=== PATIENT | female | born 1980 | race Caucasian/White ===

== ENCOUNTER 2021-10-23 08:37 | Outpatient (CLI) | payer OTHER, SELFPAY ==
--- NOTE | 2021-10-23 09:00 | CRLHL7_ITS ---
For Patients: As a result of the Century Cures Act, medical imaging exams and procedure reports are released immediately into your electronic medical record. You may view this report before your referring provider. If you have questions, please contact your health care provider. Indication: SINUSITIS, LIMITED SMELL AND TASTE SINCE COVID 2020 Technique: Performed without IV contrast Comparison: 03/12/2014 Findings: Frontal sinuses: Clear. Ethmoid sinuses: Clear. Maxillary sinuses: Clear. The maxillary sinus drainage pathways are patent on both sides. Sphenoid sinuses: Clear, including both sphenoethmoidal recesses. Nasal Cavity: Nasal septum is midline. No nasal polyps. Normal determinate mucosa. No TMJ abnormalities identified. The visualized portions of the orbits, intracranial contents and upper soft tissue neck are grossly negative. Impression: 1. Clear sinuses. 2. Midline nasal septum. Please note that all CT scans at this facility use dose modulation, iterative reconstruction, and/or weight-based dosing when appropriate to reduce radiation dose to as low as reasonably achievable. Dictated by Brandon Reddy MD @ 10/23/2021 9:35:10 AM (Electronically Signed)
== END 2021-10-23 08:38 | disposition home or self-care (01) ==
LOC: CT 08:38
PROVIDERS: Visit Provider Otolaryngology
DX: J32.9 Chronic sinusitis, unspecified (principal); J34.2 Deviated nasal septum
CPT/HCPCS: 70486

== ENCOUNTER 2021-11-18 17:41 | Outpatient (CLI) | payer OTHER, SELFPAY ==
--- NOTE | 2021-11-25 11:47 | W.PM.SLEEP ---
Sleep Study Details Details Interpreting Provider: Mick Camarillo MD Date of Sleep Study: 11/18/21 Sleep Study Details: STUDY TYPE:? Home ? BMI:? 45.6 ORDERING PROVIDER:? Jennyfer INDICATION:? Concerns about sleep apnea ? SLEEP SUMMARY:? Monitor time 555.7 minutes RESPIRATORY SUMMARY:? AHI 11.1 with minimal positional variation Low oxygen was 82% 1.8% of study oxygen less than 90%, 0.1% of study oxygen less than 85% Snoring% 36.7 PERIODIC LIMB MOVEMENTS OF SLEEP:? Not recorded CARDIAC:? Range 69 to 102, mean 81.3 IMPRESSION:? Mild obstructive sleep apnea RECOMMENDATION: Treatment options include weight loss, AutoSet CPAP, dental appliance and/or airway expansion surgery.
== END 2021-11-18 17:42 | disposition home or self-care (01) ==
PROVIDERS: Visit Provider Otolaryngology
DX: G47.33 Obstructive sleep apnea (adult) (pediatric) (principal)
CPT/HCPCS: 95806